=== PATIENT | female | born 1980 | race Two or more races ===

== ENCOUNTER → 2016-03-31 | Outpatient (CLI) | payer BC ==
--- NOTE | 2016-03-31 12:48 | XR ---
EXAMINATION TYPE: XR chest 2V DATE OF EXAM: 03/31/2016 12:28 PM COMPARISON: NONE HISTORY: Cough and congestion TECHNIQUE: Frontal and lateral views of the chest are obtained. FINDINGS: The heart is borderline enlarged. Lung volumes are low. Pulmonary vascularity and jeet wit hin normal limits. No pneumonia, pneumothorax, or pleural effusion is evident. IMPRESSION: Borderline cardiac size. Low lung volumes, follow-up as indicated.
== END | disposition home or self-care (01) ==
LOC: RADXRMAIN 12:15
PROVIDERS: ATTEND Family Medicine
DX: R05 Cough (principal); I51.7 Cardiomegaly
CPT/HCPCS: 71020

== ENCOUNTER → 2020-06-06 | Outpatient (CLI) | payer BC ==
--- NOTE | 2020-06-09 13:59 | MM ---
Reason for exam: screening (asymptomatic). Baseline mammogram. History: Family history of breast cancer in maternal grandmother. Physical Findings: Nurse did not find any significant physical abnormalities on exam. MG Screening Mammo w CAD Bilateral CC and MLO view(s) were taken. There are scattered fibroglandular densities. There are benign appearing round calcifications bilaterally. Right posterior tissue not included (product of body habitus). These results were verbally communicated with the patient and result sheet given to the patient on 06/06/20. ASSESSMENT: Benign, BI-RAD 2 RECOMMENDATION: Routine screening mammogram of both breasts in 1 year.
== END | disposition home or self-care (01) ==
LOC: RADMAMWWP 12:44
PROVIDERS: ATTEND Family Medicine
DX: Z12.31 Encounter for screening mammogram for malignant neoplasm of breast (principal); Z80.3 Family history of malignant neoplasm of breast
CPT/HCPCS: 77067

== ENCOUNTER → 2023-02-11 | Outpatient (CLI) | payer BC ==
--- NOTE | 2023-02-14 01:15 | MM ---
Reason for Exam: Screening (asymptomatic). Last mammogram was performed 2 year(s) and 8 month(s) ago. Patient History: Menarche at age 10. Patient has no children. Premenopausal. Maternal grandmother had breast cancer. Last menstrual period: 01/19/2023 Risk Values: Sariah 5 year model risk: 0.9%. NCI Lifetime model risk: 10.6%. Prior Study Comparison: 06/06/2020 Bilateral Screening Mammogram, [facility]. Tissue Density: The breast tissue is almost entirely fat. Findings: Analyzed By CAD. There is no suspicious group of microcalcifications or new suspicious mass in either breast. Overall Assessment: Negative, BI-RAD 1 Management: Screening Mammogram of both breasts in 1 year. . Patient should continue monthly self-breast exams. A clinical breast exam by your physician is recommended on an annual basis. This exam should not preclude additional follow-up of suspicious palpable abnormalities. Note on Sariah scores and lifetime risk: 1. A Sariah score greater than 3% is considered moderate risk. If this is the case, consider specialist referral to assess eligibility for a risk reducing agent. 2. If overall lifetime risk for the development of breast cancer is 20% or higher, the patient may qualify for future screening with alternating mammogram and breast MRI. Electronically signed and approved by: Kelley Mike M.D. Radiologist
== END | disposition home or self-care (01) ==
LOC: RADMAMWWP 06:41
PROVIDERS: ATTEND Family Medicine
DX: Z12.31 Encounter for screening mammogram for malignant neoplasm of breast (principal); Z80.3 Family history of malignant neoplasm of breast
CPT/HCPCS: 77067

== ENCOUNTER 2024-05-16 12:16 | Emergency (ER) | payer BC ==
[2024-05-16] MEDS: SODIUM CHLORIDE 0.9% 1,000 ML IV ONE (13:25)
[2024-05-16] MEDS: DEXAMETHASONE SOD PHOSPHATE 10 MG/ML 1 ML VIAL IVP STA (13:25)
[2024-05-16 13:32] LABS: Basophils # (A) 0.1 k/uL (0-0.2); Basophils % (A) 0 %; Eosinophils # (A) 0.3 k/uL (0-0.7); Eosinophils % (A) 2 %; HCT 38.1 % (34.0-46.0); HGB 11.9 gm/dL (11.4-16.0); Lymphocytes % (A) 25 %; MCHC 31.2 g/dL (31.0-37.0); MCV 76.9 fL (80.0-100.0); Mean Platelet Volume 8.3; Monocytes # (A) 0.6 k/uL (0-1.0); Monocytes % (A) 5 %; Neutrophils # (A) 8.1 k/uL (1.3-7.7); Neutrophils % (A) 67 %; Platelet Count 377 k/uL (150-450); RBC 4.96 m/uL (3.80-5.40); RDW 14.3 % (11.5-15.5)
[2024-05-16 13:42] LABS: ALT 20 U/L (4-34); AST 20 U/L (14-36); African American GFR (CKD) >90 (>60 ml/min/1.73 sqM); Alkaline Phosphatase 91 U/L (38-126); Anion Gap 9 mmol/L; Blood Urea Nitrogen 12 mg/dL (7-17); Calcium 9.4 mg/dL (8.4-10.2); Carbon Dioxide 26 mmol/L (22-30); Chloride 102 mmol/L (98-107); Glucose 98 mg/dL (74-99); Non-African American GFR(CKD) >90 (>60 ml/min/1.73 sqM); Potassium 3.9 mmol/L (3.5-5.1); Sodium 137 mmol/L (137-145); Total Bilirubin 0.6 mg/dL (0.2-1.3); Total Protein 7.4 g/dL (6.3-8.2)
--- NOTE | 2024-05-16 14:15 | CT ---
EXAMINATION TYPE: CT soft tissue neck w con DATE OF EXAM: 05/16/2024 2:04 PM COMPARISON: None CLINICAL INDICATION: Female, 44 years old with history of Pain, possible abscess; PHH, Possible absce ss TECHNIQUE: CT scan of the neck is performed following with IV Contrast, patient injected with 100 ml mL of Isovu e 300. Axial images are obtained, coronal and sagittal reformatted images are reviewed. CT DLP: 895.[address] CTDI: mGy Automated exposure control for dose reduction was used. FINDINGS: Findings: The thyroid gland is not enlarged and there are no focal masses. The larynx including the thyroid, arytenoid, cricoid cartilages as well as the vocal cords are normal and symmetric without laryngeal mass. The tongue base, epiglottis, aryepiglottic folds, piriform sinuses and vallecula are normal and symme tric. There is no oral or nasal pharyngeal or parapharyngeal or pharyngeal soft tissue mass or enhancement. The tonsillar tissue appears prominent bilaterally. The submandibular glands and parotid glands are normal and symmetric. The great vessels of the neck are normal. There are multiple mildly enlarged lymph nodes bilaterally including a 15 mm right jugular chain lymph node along the anterior margin of the right sternocleidom astoid muscle. There is a 14 mm lymph node in the left supraclavicular region. There are a few additi onal lymph nodes in the jugular chain which are borderline in size. These likely represent reactive l ymph nodes given the provided history of strep throat. There is no abscess or inflammation in the subcutaneous fat of the neck. The visualized paranasal sinuses are well aerated. The osseous structures are intact. IMPRESSION: 1. No evidence of neck abscess.. 2. prominent tonsillar tissue bilaterally. 3 scattered borderline to slightly enlarged lymph nodes, likely reactive as described above [facility], , 05/16/2024 2:13 PM
--- NOTE | 2024-05-16 14:16 | ED ---
ENT HPI - General Chief complaint: ENT Stated complaint: R face swell Time Seen by Provider: 05/16/24 12:19 Source: patient, RN notes reviewed Mode of arrival: ambulatory Limitations: no limitations - History of Present Illness Initial comments: 44-year-old female presents emergency department complaint of sore throat. She states that sore throat for over a week was seen by PCP today was diagnosed with strep with a positive strep swab. Patient was sent over to rule out peritonsillar abscess she complains of right-sided pain, swelling no difficulty swallowing denies any fevers or chills at this time denies any abdominal complaints - Related Data Previous Rx's Medication Instructions Recorded Amoxic-Pot Clav 875-125Mg 1 tab PO Q12HR #20 tab 05/16/24 [Augmentin 875-125] Allergies Allergy/AdvReac Type Severity Reaction Status Date / Time pseudoephedrine HCl Allergy Unknown Verified 07/02/14 23:56 [From [facility]] Review of Systems ROS Statement: Those systems with pertinent positive or pertinent negative responses have been documented in the HPI. ROS Other: All systems not noted in ROS Statement are negative. Past Medical History Past Medical History: No Reported History History of Any Multi-Drug Resistant Organisms: None Reported Past Surgical History: No Surgical Hx Reported Past Psychological History: No Psychological Hx Reported Smoking Status: Never smoker Past Alcohol Use History: None Reported Past Drug Use History: None Reported General Exam Limitations: no limitations General appearance: alert, in no apparent distress Head exam: Present: atraumatic, normocephalic, normal inspection Eye exam: Present: normal appearance, PERRL, EOMI. Absent: scleral icterus, conjunctival injection, periorbital swelling ENT exam: Present: mucous membranes moist, TM's normal bilaterally. Absent: normal oropharynx (Peritonsillar swelling right greater than left) Neck exam: Present: normal inspection, full ROM. Absent: tenderness, meningismus, lymphadenopathy Respiratory exam: Present: normal lung sounds bilaterally. Absent: respiratory distress, wheezes, rales, rhonchi, stridor Cardiovascular Exam: Present: regular rate, normal rhythm, normal heart sounds. Absent: systolic murmur, diastolic murmur, rubs, gallop, clicks GI/Abdominal exam: Present: soft, normal bowel sounds. Absent: distended, tenderness, guarding, rebound, rigid Course Vital Signs 05/16/24 12:18 Temperature 97.5 F L Pulse Rate 81 Respiratory 20 Rate Blood Pressure 140/59 O2 Sat by Pulse 99 Oximetry Medical Decision Making - Medical Decision Making Was pt. sent in by a medical professional or institution (BIPIN Zambrano, PROPERTY MANAGEMENT ACCOUNTANT, urgent care, hospital, or group home...) When possible be specific @ -PCP Did you speak to anyone other than the patient for history (EMS, parent, family, police, friend...)? What history was obtained from this source @ -No Did you review nursing and triage notes (agree or disagree)? Why? @ -I reviewed and agree with nursing and triage notes Were old charts reviewed (outside hosp., previous admission, EMS record, old EKG, old radiological studies, urgent care reports/EKG's, group home records)? Report findings @ -No old charts were reviewed Differential Diagnosis (chest pain, altered mental status, abdominal pain women, abdominal pain men, vaginal bleeding, weakness, fever, dyspnea, syncope, headache, dizziness, GI bleed, back pain, seizure, CVA, palpatations, mental health, musculoskeletal)? @ -Strep pharyngitis, peritonsillar abscess, tonsillitis, mono EKG interpreted by me (3pts min.). @ -None X-rays interpreted by me (1pt min.). @ -None done CT interpreted by me (1pt min.). @ - CT soft tissue neck showing evidence of bilateral tonsil enlargement no fluid collection U/S interpreted by me (1pt. min.). @ -None done What testing was considered but not performed or refused? (CT, X-rays, U/S, labs)? Why? @ -None What meds were considered but not given or refused? Why? @ -None Did you discuss the management of the patient with other professionals (professionals i.e. BIPIN Zambrano, PROPERTY MANAGEMENT ACCOUNTANT, lab, RT, psych nurse, social media strategist, tv production assistant, teacher, customs officer, skilled nursing case manager)? Give summary @ -No Was smoking cessation discussed for >3mins.? @ -No Was critical care preformed (if so, how long)? @ -No Were there social determinants of health that impacted care today? How? (Homelessness, low income, unemployed, alcoholism, drug addiction, transportation, low edu. Level, literacy, decrease access to med. care, alf, rehab)? @ -No Was there de-escalation of care discussed even if they declined (Discuss DNR or withdrawal of care, Hospice)? DNR status @ -No What co-morbidities impacted this encounter? (DM, HTN, Smoking, COPD, CAD, Cancer, CVA, ARF, Chemo, Hep., AIDS, mental health diagnosis, sleep apnea, mo rbid obesity)? @ -None Was patient admitted / discharged? Hospital course, mention meds given and ro [place], prescriptions, significant lab abnormalities, going to OR and other pertinent info. @ -Discharge patient has strep positive swab outpatient patient descendent rule out peritonsillar abscess. Patient does not have peritonsillar abscess will discharge on oral antibiotics Undiagnosed new problem with uncertain prognosis? @ -No Drug Therapy requiring intensive monitoring for toxicity (Heparin, Nitro, Insulin, Cardizem)? @ -No Were any procedures done? @ -No Diagnosis/symptom? @ -Strep pharyngitis Acute, or Chronic, or Acute on Chronic? @ -Acute Uncomplicated (without systemic symptoms) or Complicated (systemic symptoms)? @ -Uncomplicated Side effects of treatment? @ -No Exacerbation, Progression, or Severe Exacerbation? @ -No Poses a threat to life or bodily function? How? (Chest pain, [place], [place], pneumonia, PE, COPD, DKA, ARF, appy, cholecystitis, CVA, Diverticulitis, Homicidal, Suicidal, threat to staff... and all critical care pts) @ -No - Lab Data Result diagrams: 05/16/24 13:15 05/16/24 13:15 Lab Results 05/16/24 05/16/24 Range/Units 13:15 13:15 WBC 12.0 H (3.8-10.6) k/uL RBC 4.96 (3.80-5.40) m/uL Hgb 11.9 (11.4-16.0) gm/dL Hct 38.1 (34.0-46.0) % MCV 76.9 L (80.0-100.0) fL MCH 24.0 L (25.0-35.0) pg MCHC 31.2 (31.0-37.0) g/dL RDW 14.3 (11.5-15.5) % Plt Count 377 (150-450) k/uL MPV 8.3 Neutrophils % 67 % Lymphocytes % 25 % Monocytes % 5 % Eosinophils % 2 % Basophils % 0 % Neutrophils # 8.1 H (1.3-7.7) k/uL Lymphocytes # 3.0 (1.0-4.8) k/uL Monocytes # 0.6 (0-1.0) k/uL Eosinophils # 0.3 (0-0.7) k/uL Basophils # 0.1 (0-0.2) k/uL Sodium 137 (137-145) mmol/L Potassium 3.9 (3.5-5.1) mmol/L Chloride 102 (98-107) mmol/L Carbon Dioxide 26 (22-30) mmol/L Anion Gap 9 mmol/L BUN 12 (7-17) mg/dL Creatinine 0.67 (0.52-1.04) mg/dL Est GFR (CKD-EPI)AfAm >90 (>60 ml/min/1.73 sqM) Est GFR (CKD-EPI)NonAf >90 (>60 ml/min/1.73 sqM) Glucose 98 (74-99) mg/dL Calcium 9.4 (8.4-10.2) mg/dL Total Bilirubin 0.6 (0.2-1.3) mg/dL AST 20 (14-36) U/L ALT 20 (4-34) U/L Alkaline Phosphatase 91 (38-126) U/L Total Protein 7.4 (6.3-8.2) g/dL Albumin 4.0 (3.5-5.0) g/dL Disposition Clinical Impression: Strep pharyngitis Disposition: HOME SELF-CARE Condition: Stable Instructions (If sedation given, give patient instructions): Strep Throat (ED) Additional Instructions: Please return to the Emergency Department if symptoms worsen or any other concerns. Prescriptions: Amoxic-Pot Clav 875-125Mg [Augmentin 875-125] 1 tab PO Q12HR #20 tab Is patient prescribed a controlled substance at d/c from ED?: No Referrals: Nella Andrade MD [Primary Care Provider] - 1-2 days Time of Disposition: 14:38
[2024-05-16 15:10] VITALS: BP 135/74; PULSE 69; RESP 18; TEMP 97.7
== END 2024-05-16 15:42 | disposition home or self-care (01) ==
LOC: EC 12:16
DX: J02.0 Streptococcal pharyngitis (principal); Z88.8 Allergy status to other drugs, medicaments and biological substances
CPT/HCPCS: 36415; 80053; 85025; 87040; 70491; 99283; 96365; 96375; J1100; J0696; Q9967